=== PATIENT | female | born 1970 | race Caucasian/White ===

== ENCOUNTER 2023-09-27 17:12 | Emergency (ER) | payer OTHER ==
[~2023-09-27] VITALS: Ht 170.2 cm; Wt 65.8 kg
[2023-09-27 17:15] VITALS: BP_SYST 129; PULSE 69; RESP 17; TEMP 98.4; O2SAT 98
[2023-09-27] MEDS: ONDANSETRON HCL 4 MG/2 ML VIAL IVP ONE (18:15)
[2023-09-27 18:51] LABS: BASOPHILS % (AUTO) 0.4 % (0.0-2.0); EOSINOPHILS # (AUTO) 0.1 K/uL (0.0-0.4); EOSINOPHILS % (AUTO) 0.9 % (0.0-4.0); HEMATOCRIT 36.9 % (36-48); HEMOGLOBIN 12.8 g/dL (12.0-16.0); LYMPHOCYTES # (AUTO) 2.1 K/uL (1.0-5.5); LYMPHOCYTES % (AUTO) 31.9 % (20.5-51.5); MEAN CORPUSCULAR HEMOGLOBIN 31 pg (27-31); MEAN CORPUSCULAR HGB CONC 35 % (32-36); MEAN CORPUSCULAR VOLUME 89 fL (79.0-98.0); MONOCYTES # (AUTO) 0.5 K/uL (0.0-1.0); MONOCYTES % (AUTO) 7.1 % (1.7-9.3); NEUTROPHILS % (AUTO) 59.7 % (40.0-70.0); PLATELET COUNT (AUTO) 198 K/uL (130-430); RED BLOOD CELL COUNT(AUTO) 4.14 MIL/uL (4.2-6.2); RED CELL DISTRIBUTION WIDTH 13.6 % (9.0-15.0); WHITE BLOOD COUNT (AUTO) 6.7 K/uL (4.8-10.8)
[2023-09-27 19:02] LABS: CREATININE 0.64 mg/dL (0.55-1.30); POTASSIUM 3.8 mmol/L (3.5-5.1); TOTAL BILIRUBIN 0.3 mg/dL (0.0-1.0); TOTAL PROTEIN, SERUM 7.5 g/dL (6.4-8.3)
[2023-09-27] MEDS: NACL 0.9% 1,000 ML IV ONE ×2 (19:45→19:51)
[2023-09-27 21:25] VITALS: BP_SYST 125; PULSE 65; RESP 18; TEMP 98.2; O2SAT 98
== END 2023-09-27 21:25 | disposition home or self-care (01) ==
LOC: SED 17:12
DX: E83.52 Hypercalcemia (principal); Z20.822 Contact with and (suspected) exposure to COVID-19; R53.1 Weakness; R53.83 Other fatigue
CPT/HCPCS: 99283; 96360; 87426; 80053; 85025; 36415; J7030

== ENCOUNTER 2023-10-14 15:47 | Outpatient (CLI) | payer OTHER ==
[2023-10-14 16:41] LABS: BASOPHILS % (AUTO) 0.4 % (0.0-2.0); EOSINOPHILS # (AUTO) 0.1 K/uL (0.0-0.4); HEMATOCRIT 37.2 % (36-48); HEMOGLOBIN 12.6 g/dL (12.0-16.0); LYMPHOCYTES # (AUTO) 2.4 K/uL (1.0-5.5); LYMPHOCYTES % (AUTO) 36.6 % (20.5-51.5); MEAN CORPUSCULAR HEMOGLOBIN 31 pg (27-31); MEAN CORPUSCULAR HGB CONC 34 % (32-36); MEAN CORPUSCULAR VOLUME 91 fL (79.0-98.0); MONOCYTES # (AUTO) 0.4 K/uL (0.0-1.0); MONOCYTES % (AUTO) 6.6 % (1.7-9.3); NEUTROPHILS # (AUTO) 3.6 K/uL (1.8-7.7); NEUTROPHILS % (AUTO) 55.4 % (40.0-70.0); PLATELET COUNT (AUTO) 195 K/uL (130-430); RED BLOOD CELL COUNT(AUTO) 4.09 MIL/uL (4.2-6.2); RED CELL DISTRIBUTION WIDTH 13.5 % (9.0-15.0); WHITE BLOOD COUNT (AUTO) 6.5 K/uL (4.8-10.8)
[2023-10-14 17:17] LABS: COLOR,URINE YELLOW (YELLOW)
[2023-10-14 17:18] LABS: BILIRUBIN,URINE NEGATIVE (NEGATIVE); BLOOD, URINE NEGATIVE (NEGATIVE); CALCIUM 10.6 mg/dL (8.4-11.0); CLARITY/URINE CLEAR (CLEAR); CREATININE 0.69 mg/dL (0.55-1.30); FREE T4 (FREE THYROXINE) 0.8 ng/dl (0.8-1.5); GLUCOSE,URINE NEGATIVE (NEGATIVE); KETONES,URINE NEGATIVE (NEGATIVE); LEUKOCYTE ESTERASE ,URINE NEGATIVE (NEGATIVE); NITRITE, URINE NEGATIVE (NEGATIVE); POTASSIUM 3.3 mmol/L (3.5-5.1); PROTEIN URINE NEGATIVE (NEGATIVE); THYROID STIMULATING HORMONE 1.84 uIu/mL (0.36-3.74); TOTAL BILIRUBIN 0.3 mg/dL (0.0-1.0); TOTAL PROTEIN, SERUM 7.5 g/dL (6.4-8.3); UROBILINOGEN,URINE 0.2 (0.2-1.0)
[2023-10-14 18:36] LABS: HEMOGLOBIN A1C 5.7 % (<5.7)
== END 2023-10-14 20:56 | disposition home or self-care (01) ==
LOC: SLB 15:47
PROVIDERS: ATTEND Internal Medicine
DX: I10 Essential (primary) hypertension (principal); E78.5 Hyperlipidemia, unspecified; R73.9 Hyperglycemia, unspecified; E21.0 Primary hyperparathyroidism; E55.9 Vitamin D deficiency, unspecified; E56.9 Vitamin deficiency, unspecified
CPT/HCPCS: 36415; 80053; 80061; 81001; 81003; 82306; 83037; 83970; 84439; 84443; 85025

== ENCOUNTER 2023-10-31 13:35 | Outpatient (CLI) | payer OTHER | END 2023-10-31 19:28 | disposition home or self-care (01) | LOC: SLB 13:35 | PROVIDERS: ATTEND Internal Medicine | DX: Z01.818 Encounter for other preprocedural examination (principal); E21.0 Primary hyperparathyroidism; E55.9 Vitamin D deficiency, unspecified | CPT/HCPCS: 36415; 71046; 82306; 83970 ==

== ENCOUNTER 2023-11-07 16:31 | Outpatient (CLI) | payer OTHER | END 2023-11-07 21:02 | disposition home or self-care (01) | LOC: SCA 16:31 | PROVIDERS: ATTEND Internal Medicine | DX: Z01.818 Encounter for other preprocedural examination (principal) | CPT/HCPCS: 93005 ==